=== PATIENT | male | born 1940 | race Caucasian/White ===

== ENCOUNTER → 2020-02-19 11:32 | Outpatient (CLI) | payer MEDICARE, OTHER, SELFPAY ==
--- NOTE | 2020-02-19 11:55 | DI.CT.S_ITS ---
PROCEDURE: CT SINUS SCREEN WO CON INDICATIONS: Chronic pansinusitis TECHNIQUE: Noncontrast 3.0 mm axial images acquired from the frontal sinuses to the mid-sella, with coronal and sagittal reformats. For radiation dose reduction, the following was used: automated exposure control, adjustment of mA and/or kV according to patient size. COMPARISON: None. FINDINGS: Image quality: Excellent. Maxillary Sinuses: No bony remodeling or destruction. Sinuses are clear. Ethmoid Air Cells: No bony remodeling or destruction. Sinuses are clear. Sphenoid Sinuses: No bony remodeling or destruction. Sinuses are clear. Frontal Sinuses: No bony remodeling or destruction. Sinuses are clear. Ostiomeatal Complexes: Ostiomeatal complexes are patent. No Vladimir cells. Miscellaneous: Visualized intra-orbital contents are normal. Bilateral eunice bullosa are seen, right larger than left. There is moderate leftward nasal septal deviation. IMPRESSION: Focal maxillary sinus disease, left worse than right. Bilateral eunice bullosa with moderate leftward nasal septal deviation. Dictated by: Brandon Haddad M.D. on 02/19/2020 at 11:18 Approved by: Brandon Haddad M.D. on 02/19/2020 at 11:20
== END ==
PROVIDERS: PCP Family Medicine; Referring Provider Family Medicine; Visit Provider Otolaryngology
DX: J32.4 Chronic pansinusitis (principal); J34.3 Hypertrophy of nasal turbinates; J34.2 Deviated nasal septum
CPT/HCPCS: 70486

== ENCOUNTER → 2021-08-06 13:32 | Outpatient (CLI) | payer MEDICARE, OTHER, SELFPAY ==
--- NOTE | 2021-08-06 | DI.CT.S_ITS ---
PROCEDURE: CT SINUS SCREEN WO CON INDICATIONS: Chronic maxillary sinusitis TECHNIQUE: Noncontrast 3.0 mm axial images acquired from the frontal sinuses to the mid-sella, with coronal and sagittal reformats. For radiation dose reduction, the following was used: automated exposure control, adjustment of mA and/or kV according to patient size. COMPARISON: [facility], CT, CT SINUS SCREEN WO CON, 02/19/2020, 11:47. FINDINGS: Image quality: Excellent. Maxillary Sinuses: Trace mucosal thickening noted along the floors of both maxillary sinuses greater on the right measuring less than 3 mm. Ethmoid Air Cells: No bony remodeling or destruction. Sinuses are clear. Sphenoid Sinuses: No bony remodeling or destruction. Sinuses are clear. Frontal Sinuses: No bony remodeling or destruction. Sinuses are clear. Ostiomeatal Complexes: Both ostiomeatal units are patent but stenotic. No Vladimir cells present. Miscellaneous: Visualized intra-orbital contents are normal. There is aeration of the right middle turbinate and nasal septal spurring to the left IMPRESSION: Trace maxillary mucosal thickening within physiologic limits. Both ostiomeatal units are stenotic but patent. No sequelae of chronic maxillary sinusitis Approved by: Phillip Barbosa M.D. on 08/06/2021 at 15:38
== END ==
PROVIDERS: PCP Family Medicine; Referring Provider Otolaryngology; Visit Provider Otolaryngology
DX: J32.0 Chronic maxillary sinusitis (principal); R09.82 Postnasal drip
CPT/HCPCS: 70486

== ENCOUNTER → 2023-02-15 15:05 | Outpatient (CLI) | payer MEDICARE, OTHER, SELFPAY ==
--- NOTE | 2023-02-15 | DI.MRI.S_ITS ---
PROCEDURE: MR HEAD/BRAIN WO/W CON INDICATIONS: double vision TECHNIQUE: Noncontrast axial T1 spin echo, axial T2 fast spin echo, sagittal and axial FLAIR, coronal T2 fast spin echo, axial gradient echo, axial diffusion and ADC through the brain. After the administration of contrast, axial and coronal and sagittal T1 spin echo with fat saturation through the brain. COMPARISON: None. FINDINGS: Image quality: Excellent. CSF spaces: Basal cisterns are patent. No extra-axial fluid collections. Ventricles are normal in size and shape. Brain: No midline shift. No intracranial bleeds or masses. No abnormal intracranial enhancement. There is cerebral volume loss for age. There is periventricular white matter chronic small vessel ischemic change. The brainstem appears normal. Diffusion-weighted images demonstrate no acute ischemic insults. No chronic ischemic insults. Normal intravascular flow voids are present. Skull and face: Calvarial marrow is normal in signal. Orbits appear normal. Sinuses: Sinuses demonstrates minimal scattered areas of mucosal thickening. Mild fluid is present in the left mastoid air cells.. IMPRESSION: 1. No acute intracranial process. 2. Moderate atrophy and chronic microvascular ischemic changes. 3. Mild fluid in the left mastoid air cells. Recommend correlation to potential mastoiditis. Dictated by: Barb West M.D. on 02/15/2023 at 21:22 Approved by: Barb West M.D. on 02/15/2023 at 21:23
== END ==
PROVIDERS: PCP Physician Assistant; Referring Provider Physician Assistant; Visit Provider Physician Assistant
DX: H53.2 Diplopia (principal); G31.9 Degenerative disease of nervous system, unspecified
CPT/HCPCS: 70553; A9579

== ENCOUNTER 2024-04-24 12:40 | Emergency (ER) | payer MEDICARE, OTHER, SELFPAY ==
[2024-04-24] VITALS (10 sets, daily range): BP systolic 99–128; BP diastolic 59–63; PULSE 51–144; RESP 16–25; TEMP 36.6; O2SAT 96–98; BMI 30.4
--- NOTE | 2024-04-24 12:52 | DI.RAD.S_ITS ---
PROCEDURE: XR CHEST 1V INDICATIONS: chest pain TECHNIQUE: One view of the chest was acquired. COMPARISON: None. FINDINGS: Surgical changes and devices: None. Lungs and pleura: Lungs are clear. No pleural effusions or pneumothorax. Mediastinum: Aortic arch calcifications. Mediastinal contours otherwise appear normal. Heart size is normal. Bones and chest wall: No suspicious bony lesions. Overlying soft tissues appear unremarkable. IMPRESSION: No acute cardiothoracic process. Dictated by: Cem Jiang M.D. on 04/24/2024 at 13:25 Approved by: Cem Jiang M.D. on 04/24/2024 at 13:26
--- NOTE | 2024-04-24 13:07 | EKG_ITS ---
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
--- NOTE | 2024-04-24 13:08 | EKG_ITS ---
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
[2024-04-24 13:41] LABS: INR 1.5 (0.9-1.3); Prothrombin Time 16.8 SECONDS (9.4-12.5)
[2024-04-24 13:43] LABS: PTT Partial Thromboplastin Tim 41 SECONDS (25.1-36.5)
[2024-04-24 13:49] LABS: Alanine Aminotransferase 30 IU/L (<50); Albumin 4.8 g/dL (3.5-5.0); Albumin Globulin Ratio 1.9 (1.0-2.8); Alkaline Phosphatase 98 U/L (38-126); Aspartate Aminotransferase 32 IU/L (17-59); BUN Creatinine Ratio 21.5 (6-22); Bilirubin Total 0.7 mg/dL (0.2-1.3); Blood Urea Nitrogen 26 mg/dL (9-20); Calcium 9.8 mg/dL (8.4-10.2); Carbon Dioxide 22 mmol/L (22-32); Chloride 97 mmol/L (98-107); Creatine Kinase 103 U/L (55-170); Estimated Glomerular Filt Rate 60 mL/min (>60); Globulin 2.5 g/dL (1.7-4.1); Glucose 103 mg/dL (80-110); HEMOLYSIS < 15 (0-50); Lipase 255 U/L (23-300); Magnesium 1.5 mg/dL (1.6-2.3); Potassium 4.5 mmol/L (3.4-5.1); Sodium 130 mmol/L (137-145); Total Protein 7.3 g/dL (6.3-8.2)
[2024-04-24 13:56] LABS: Add Manual Diff / Slide Review NO; Basophils Absolute Auto 0 /uL (0-100); Basophils Percent Auto 0.1 % (0-2); Eosinophils Absolute Auto 0 /uL (0-450); Eosinophils Percent Auto 0.1 % (2-4); Hematocrit 32.4 % (41-53); Hemoglobin 10.9 g/dL (13.5-17.5); Lymphocytes Absolute Auto 11500 /uL (1100-4500); Lymphocytes Percent Auto 49.7 % (25-40); Mean Corpuscular HGB Conc 33.5 % (30-36); Mean Corpuscular Hemoglobin 29.9 PG (26-34); Mean Corpuscular Volume 89.2 fL (80-100); Monocytes Absolute Auto 900 /uL (0-900); Neutrophils Absolute Auto 10700 /uL (1500-7000); Neutrophils Percent Auto 46.1 % (50-75); Platelet Count 189 X10^3/uL (150-400); Red Blood Cell Count 3.63 X10^6/uL (4.5-5.9); Red Cell Distribution Width 12.9 % (11.6-14.8); White Blood Cell Count 23.1 X10^3/uL (4.5-11.0)
--- NOTE | 2024-04-24 13:57 | ED.GENADULT ---
HPI - General Adult General Chief complaint: Dizziness Stated complaint: low bp, chest congestion pt is anemic Time Seen by Provider: 04/24/24 13:57 Source: patient Mode of arrival: Ambulatory History of Present Illness HPI narrative: 83-year-old male with history of CLL diagnosed 2 years ago, on oral chemotherapy regimen twice daily, followed by oncologist Dr. Pickard at [facility], more recently with clinical sinusitis diagnosis, history of atrial flutter for which he takes Eliquis anticoagulation, history of anemia for which he anticipates some kind of transfusion (iron versus packed cells he has not sure) in June 2024, recently had 7 day course of oral antibiotic (Amoxicillin versus Augmentin) completed 04/13/2024, having recent days diarrhea, no black or red stools, a little bit more formed stool today, continued dry cough and some nasal congestion, went to walk-in clinic, apparently he looked pale, had low blood pressure, they referred him here for further evaluation. He denies chest pain or shortness of breath. He denies focal weakness to face arm or leg. He has some generalized weakness. He denies current abdominal pain. He has not have painful urination or frequency of urination. Related Data Allergies Allergy/AdvReac Type Severity Reaction Status Date / Time No Known Drug Allergies Allergy Verified 04/24/24 12:43 Patient History Social History Smoking Status: Never smoker Smoking Status: Never smoker Exam Narrative Exam Narrative: GENERAL: Well-developed patient, in mild distress. HEAD: Atraumatic. Normocephalic. EYES: Pupils equal round and reactive. Extraocular motions intact. No scleral icterus. No injection or drainage. ENT: Nose without bleeding, purulent drainage. Throat without erythema, tonsillar hypertrophy or exudate. Airway patent. NECK: Trachea midline. Non tender CARDIOVASCULAR: Regular rate and rhythm without murmurs, gallops, or rubs. RESPIRATORY: Clear to auscultation. Breath sounds equal bilaterally. No wheezes, rales, or rhonchi. GASTROINTESTINAL: Abdomen soft, non-tender, nondistended. EXTREMITIES: No edema or joint tenderness. BACK: Nontender without deformity or crepitance. No flank tenderness. NEURO: AOx3. Motor functions grossly nonfocal SKIN: No rash or erythema of visible areas Initial Vital Signs Initial Vital Signs: Vital Signs Temperature 97.8 F 04/24/24 12:43 Pulse Rate 120 H 04/24/24 12:43 Respiratory Rate 22 04/24/24 12:43 Blood Pressure 122/59 L 04/24/24 12:43 Pulse Oximetry 98 04/24/24 12:43 Oxygen Delivery Method Room Air 04/24/24 12:43 Course Orders Ordered: ED Orders 04/24/24 12:52 XR chest 1V Stat EKG-12 Lead Stat 04/24/24 13:00 Complete Blood Count AUTO DIFF Stat Comprehensive Metabolic Panel Stat Lipase Stat Magnesium Stat NT-proBNP (BNP-Adult 18+) Stat PTT Partial Thromboplastin Jeremy Stat Prothrombin Time INR Stat Troponin & CK Cardiac Panel Stat 04/24/24 13:05 Lactate (Lactic Acid) Stat 04/24/24 14:42 Covid-19 + FLU A/B + RSV - PCR Stat Discontinued Medications Sodium Chloride (Normal Saline 0.9%) 1,000 mls @ 1,000 mls/hr IV BOLUS ONE Stop: 04/24/24 15:27 Last Infusion: 04/24/24 15:47 Dose: Infused Documented By: Admin: 04/24/24 14:48 Dose: 1,000 mls/hr Documented By: SANCHEZ Magnesium Sulfate (Magnesium Sulfate) 2 gm in 50 mls @ 150 mls/hr IV NOW ONE Stop: 04/24/24 15:00 Last Infusion: 04/24/24 15:33 Dose: Infused Documented By: SANCHEZ Co-signed By: INA Admin: 04/24/24 14:49 Dose: 150 mls/hr Documented By: SANCHEZ Co-signed By: INA Vital Signs Vital signs: Vital Signs - 8 hr 04/24/24 12:43 04/24/24 12:55 04/24/24 13:00 Temperature 97.8 F Pulse Rate 120 H 144 H 92 H Respiratory Rate 22 20 Blood Pressure 122/59 L Pulse Oximetry 98 97 98 Oxygen Delivery Method Room Air 04/24/24 13:30 04/24/24 13:32 04/24/24 13:32 Temperature Pulse Rate 85 79 Respiratory Rate 25 H 16 Blood Pressure 106/62 Pulse Oximetry 96 97 Oxygen Delivery Method 04/24/24 14:00 04/24/24 14:00 04/24/24 14:30 Temperature Pulse Rate 79 78 Respiratory Rate 22 19 Blood Pressure 99/61 Pulse Oximetry 96 97 Oxygen Delivery Method 04/24/24 14:30 04/24/24 15:00 04/24/24 15:00 Temperature Pulse Rate 77 Respiratory Rate 24 Blood Pressure 111/63 104/62 Pulse Oximetry 97 Oxygen Delivery Method 04/24/24 15:17 04/24/24 15:17 04/24/24 15:30 Temperature Pulse Rate 51 L 76 Respiratory Rate 21 Blood Pressure 128/61 Pulse Oximetry 97 98 Oxygen Delivery Method 04/24/24 15:30 Temperature Pulse Rate Respiratory Rate Blood Pressure 110/62 Pulse Oximetry Oxygen Delivery Method Medical Decision Making Lab Data Lab results reviewed: Yes I reviewed the patient's lab results. Lab results narrative: White blood cell count 86709, history of CLL noted. Hemoglobin 10.9. Platelets adequate. Sodium 130, potassium normal, BUN 26 with creatinine 1.21, glucose 103. Liver functions unremarkable. Lipase normal. Troponin negative/unmeasurable 04/24/24 13:00 04/24/24 13:00 Labs: Lab Results 04/24/24 04/24/24 04/24/24 Range/Units 13:00 13:05 14:42 WBC 23.1 H (4.5-11.0) X10^3/uL RBC 3.63 L (4.5-5.9) X10^6/uL Hgb 10.9 L (13.5-17.5) g/dL Hct 32.4 L (41-53) % MCV 89.2 (80-100) fL MCH 29.9 (26-34) PG MCHC 33.5 (30-36) % RDW 12.9 (11.6-14.8) % Plt Count 189 (150-400) X10^3/uL Neut % (Auto) 46.1 L (50-75) % Lymph % (Auto) 49.7 H (25-40) % [place] % (Auto) 4.0 (3-14) % Eos % (Auto) 0.1 L (2-4) % Baso % (Auto) 0.1 (0-2) % Neut # (Auto) 61421 H (8117-8818) /uL Lymph # (Auto) 05722 H (1426-7351) /uL [place] # (Auto) 900 (0-900) /uL Eos # (Auto) 0 (0-450) /uL Baso # (Auto) 0 (0-100) /uL PT 16.8 H (9.4-12.5) SECONDS INR 1.5 H (0.9-1.3) APTT 41 H (25.1-36.5) SECONDS Sodium 130 L (137-145) mmol/L Potassium 4.5 (3.4-5.1) mmol/L Chloride 97 L (98-107) mmol/L Carbon Dioxide 22 (22-32) mmol/L BUN 26 H (9-20) mg/dL Creatinine 1.21 (0.66-1.25) mg/dL Estimated GFR 60 (>60) mL/min BUN/Creatinine Ratio 21.5 (6-22) Glucose 103 (80-110) mg/dL Lactate 1.2 (0.7-2.1) mmol/L Calcium 9.8 (8.4-10.2) mg/dL Magnesium 1.5 L (1.6-2.3) mg/dL Total Bilirubin 0.7 (0.2-1.3) mg/dL AST 32 (17-59) IU/L ALT 30 (<50) IU/L Alkaline Phosphatase 98 (38-126) U/L Total Creatine Kinase 103 (55-170) U/L Troponin I < 0.012 (0.01-0.034) ng/mL NT-Pro-B Natriuret Pep 2730 H (<450) pg/mL Total Protein 7.3 (6.3-8.2) g/dL Albumin 4.8 (3.5-5.0) g/dL Globulin 2.5 (1.7-4.1) g/dL Albumin/Globulin Ratio 1.9 (1.0-2.8) Lipase 255 (23-300) U/L SARS-CoV-2 (PCR) Negative (Negative) Influenza A (RT-PCR) Flu a negative (NEGATIVE) Influenza B (RT-PCR) Flu b negative (NEGATIVE) RSV (PCR) Negative (Negative) Imaging Data Chest x-ray: Radiologist's Impression: [address] [address] XRay Report Signed Patient: Kobi Urban MR#: [id number] : 1940 Acct:[id number] Age/Sex: 83 / M Date of Service: 04/24/24 Loc: ED Accession Number: [id number] Procedure: XR chest 1V Ordering Provider: Giuseppe Blackwood MD PROCEDURE: XR CHEST 1V INDICATIONS: chest pain TECHNIQUE: One view of the chest was acquired. COMPARISON: None. FINDINGS: Surgical changes and devices: None. Lungs and pleura: Lungs are clear. No pleural effusions or pneumothorax. Mediastinum: Aortic arch calcifications. Mediastinal contours otherwise appear normal. Heart size is normal. Bones and chest wall: No suspicious bony lesions. Overlying soft tissues appear unremarkable. IMPRESSION: No acute cardiothoracic process. Dictated by: Cem Jiang M.D. on 04/24/2024 at 13:25 Approved by: Cem Jiang M.D. on 04/24/2024 at 13:26 ECG Data Attestation: I personally reviewed and interpreted this ECG as follows: Interpretation: Atrial flutter with 4-1 AV block, ventricular response rate 78, no obvious ST segment elevation or depression changes. QRS 136, QTC 458. [facility] Narrative Medical decision making narrative: 83-year-old with history of CLL with ongoing oral chemotherapy regimen, recent course of amoxicillin/Augmentin antibiotic for sinusitis, with subsequent diarrhea nonbloody, atrial fibrillation on Eliquis, had generalized weakness in context of recent upper respiratory cough symptoms. Normal oxygenation. Initial atrial flutter with heart rate 120s noted, after IV fluids and no other specific therapies his heart rate improved to the 50-70 range. He feels better after IV fluids. Troponin negative. No stool specimen was ever collected descend for lab that was ordered. COVID/influenza swab negative. Able to take oral fluids, able to ambulate, seems much improved. Suspect he might have been dehydrated from his recent course of antibiotics. Elevated white blood cell count noted with negative lactate, history of CLL. Follow up with his oncologist advised. Continue current regimen medications for now. Return precautions discussed. Discharge Plan Departure Patient Disposition: Home Clinical Impression: Generalized weakness, Hypomagnesemia, Diarrhea, Dehydration, Hx of chronic lymphocytic leukemia Activity Restrictions/Additional Instructions: History of chronic lymphocytic leukemia with ongoing oral chemotherapy, recent diagnosis of sinusitis for which you were given a course of antibiotic, with subsequent diarrhea. Recent cough, COVID/influenza negative today. Chest x-ray without obvious pneumonia changes. No stool specimen sent for testing the lab. IV fluids were given, your symptoms improved, you might have had some degree of dehydration from your recent diarrhea. Follow up with your oncologist as planned. Continue your chronic medications for now. Low magnesium was also noted, IV magnesium repletion was done, consider recheck of your magnesium blood level in follow up. Drink plenty of fluids. Recheck with your oncologist as scheduled. Recheck symptoms in the next few days with your regular doctor. Return earlier to this/nearest emergency department for any change worsening symptoms or any concerns prior Referrals: Urszula Monroy PA-C [Primary Care Provider] - Stand Alone Forms: Patient Portal/API/Survey
[2024-04-24 14:00] LABS: NT-proBNP (BNP-Adult 18+) 2730 pg/mL (<450); Troponin I < 0.012 ng/mL (0.01-0.034)
[2024-04-24 14:08] LABS: Lactate (Lactic Acid) 1.2 mmol/L (0.7-2.1)
[2024-04-24] MEDS: SODIUM CHLORIDE 0.9% 1,000 ML 1000 ML IV (14:48)
[2024-04-24] MEDS: MAGNESIUM SULFATE 2 GM/50 ML PIGGYBACK IV (14:49)
[2024-04-24 15:39] LABS: Influenza A - CEPHEID Flu A NEGATIVE (NEGATIVE); Influenza B - CEPHEID Flu B NEGATIVE (NEGATIVE); Respiratory Syncytial Virus Negative (Negative)
[2024-04-24 15:43] LABS: COVID-19 CEPHEID 4-PLEX PCR Negative (Negative)
== END 2024-04-24 15:54 | disposition home or self-care (01) ==
PROVIDERS: Emergency Provider Emergency Medicine; PCP Physician Assistant
DX: R53.1 Weakness (principal); E83.42 Hypomagnesemia; R19.7 Diarrhea, unspecified; E86.0 Dehydration; I48.92 Unspecified atrial flutter; C91.10 Chronic lymphocytic leukemia of B-cell type not having achieved remission; R05.9 Cough, unspecified; Z79.01 Long term (current) use of anticoagulants
CPT/HCPCS: 0241U; 36415; 71045; 80053; 82550; 83605; 83690; 83735; 83880; 84484; 85025; 85610; 85730; 93005; 96365; 99284; J3475